=== PATIENT | female | born 1935 | race Caucasian/White ===

== ENCOUNTER 2021-04-27 08:41 | Emergency (ER) | payer OTHER ==
[2021-04-27 10:06] LABS: BILIRUBIN NEGATIVE (NEGATIVE); BLOOD TRACE-INTACT Ery/uL (NEGATIVE); CLARITY CLEAR (CLEAR); COLOR YELLOW (YELLOW); GLUCOSE (U) NORMAL (NORMAL); LEUKOCYTES NEGATIVE Leu/uL (NEGATIVE); NITRITE NEGATIVE (NEGATIVE); PROTEIN NEGATIVE (NEGATIVE); pH 6.5 (5.0-9.0)
[2021-04-27 10:14] LABS: BACTERIA 1+
[2021-04-27 10:33] LABS: BASOPHIL 0.4 % (0-2); EOSINOPHIL 0.2 % (0-7); HCT 35.1 % (37.0-47.0); HGB 11.6 g/dl (12.5-16.0); LYMPHOCYTE 14.9 % (15-48); MCH 33.4 pg (25.0-31.0); MCV 101.2 fL (78.0-100.0); MONOCYTE 7.9 % (0-12); MPV 9.5 fL (6.0-9.5); NEUTROPHIL 76.2 % (41-80); NRBC 0; PLT 191 K/uL (150-400); RBC 3.47 M/uL (4.20-5.40); RDW 14.2 % (11.5-14.0)
[2021-04-27 10:49] LABS: PTT 34.2 SECONDS (24.4-34.7)
[2021-04-27 10:53] LABS: ALBUMIN 3.5 g/dL (3.4-5.0); BILIRUBIN - TOTAL 1.5 mg/dL (0.2-1.0); BUN/CREAT RATIO (CALC) 14.1 RATIO; CREATININE 0.64 mg/dL (0.51-0.95); GLOBULIN (CALCULATION) 3.5 g/dL; POTASSIUM 3.8 mmol/L (3.5-5.1)
[2021-04-27 11:10] LABS: INR 1.12 (0.9-1.2); PROTHROMBIN TIME 13.8 SECONDS (11.8-13.4)
== END 2021-04-27 12:34 | disposition home or self-care (01) ==
LOC: FER 08:41
PROVIDERS: Emergency Medicine
DX: S22.41XA Multiple fractures of ribs, right side, initial encounter for closed fracture (principal); F03.90 Unspecified dementia, unspecified severity, without behavioral disturbance, psychotic disturbance, mood disturbance, and anxiety; Z88.0 Allergy status to penicillin; W19.XXXA Unspecified fall, initial encounter
CPT/HCPCS: 36415; 70450; 71250; 80053; 81001; 84484; 85025; 85610; 85730; 87040; 87088; 93005; 94010

== ENCOUNTER 2021-05-02 13:43 | Inpatient (IN) | payer OTHER ==
[~2021-05-02] VITALS: Ht 160 cm; Wt 64.9 kg
[2021-05-02 14:54] LABS: BASOPHIL 0.5 % (0-2); EOSINOPHIL 0.1 % (0-7); HCT 38.6 % (37.0-47.0); HGB 12.6 g/dl (12.5-16.0); LYMPHOCYTE 16.4 % (15-48); MCH 32.9 pg (25.0-31.0); MCHC 32.6 g/dL (32.0-36.0); MCV 100.8 fL (78.0-100.0); MONOCYTE 8.4 % (0-12); MPV 9.9 fL (6.0-9.5); NEUTROPHIL 73.8 % (41-80); NRBC 0; PLT 285 K/uL (150-400); RBC 3.83 M/uL (4.20-5.40); RDW 13.5 % (11.5-14.0); WBC 10.4 K/uL (4.0-10.5)
[2021-05-02 14:55] LABS: INR 1.12 (0.9-1.2); PROTHROMBIN TIME 13.8 SECONDS (11.8-13.4); PTT 32.2 SECONDS (24.4-34.7)
[2021-05-02 14:56] LABS: BILIRUBIN NEGATIVE (NEGATIVE); BLOOD NEGATIVE Ery/uL (NEGATIVE); CLARITY CLEAR (CLEAR); COLOR YELLOW (YELLOW); GLUCOSE (U) NORMAL (NORMAL); LEUKOCYTES NEGATIVE Leu/uL (NEGATIVE); NITRITE POSITIVE (NEGATIVE); PROTEIN NEGATIVE (NEGATIVE); UROBILINOGEN 0.2 mg/dL (0.2-1.0)
[2021-05-02 15:13] LABS: ALBUMIN 3.7 g/dL (3.4-5.0); BILIRUBIN - TOTAL 1.4 mg/dL (0.2-1.0); BUN/CREAT RATIO (CALC) 13.3 RATIO; CREATININE 0.75 mg/dL (0.51-0.95); GLOBULIN (CALCULATION) 3.3 g/dL; POTASSIUM 4.1 mmol/L (3.5-5.1)
[2021-05-02 15:16] LABS: BACTERIA 3+; SQUAMOUS EPITHELIAL CELLS RARE; TRANSITIONAL EPITHELIAL CELLS RARE; URINARY WBC RARE
[2021-05-02 15:16] LABS: LACTIC ACID 1.6 mmol/L (0.4-1.9)
[2021-05-02] MEDS ORDERED: LEVOTHYROXINE100 MCG PO (20:17)
[2021-05-02] MEDS ORDERED: ESCITALOPRAM OX20 MG PO (20:18)
[2021-05-03 07:12] LABS: BASOPHIL 0.5 % (0-2); EOSINOPHIL 0.8 % (0-7); HCT 32.9 % (37.0-47.0); HGB 10.6 g/dl (12.5-16.0); LYMPHOCYTE 21.1 % (15-48); MCH 32.7 pg (25.0-31.0); MCHC 32.2 g/dL (32.0-36.0); MCV 101.5 fL (78.0-100.0); MONOCYTE 9.4 % (0-12); MPV 10.1 fL (6.0-9.5); NEUTROPHIL 67.5 % (41-80); NRBC 0; PLT 235 K/uL (150-400); RBC 3.24 M/uL (4.20-5.40); RDW 13.7 % (11.5-14.0); WBC 8.4 K/uL (4.0-10.5)
[2021-05-03 07:27] LABS: ALBUMIN 2.9 g/dL (3.4-5.0); BILIRUBIN - TOTAL 1.1 mg/dL (0.2-1.0); BUN/CREAT RATIO (CALC) 17.9 RATIO; CREATININE 0.56 mg/dL (0.51-0.95); GLOBULIN (CALCULATION) 3.2 g/dL; POTASSIUM 3.6 mmol/L (3.5-5.1); TOTAL PROTEIN 6.1 g/dL (6.4-8.2)
--- NOTE | 2021-05-03 15:11 | NUR ---
05/03/21 Ms. Mullen was admitted from [facility]. They will not accept her back until she has had [facility] services. Her son, Bill Mullen chose [facility], [facility] or [facility]. Referrals have been made to each facility.
[2021-05-04 06:58] LABS: BASOPHIL 0.4 % (0-2); EOSINOPHIL 0.8 % (0-7); HCT 31.2 % (37.0-47.0); HGB 10.3 g/dl (12.5-16.0); LYMPHOCYTE 18.8 % (15-48); MCH 33.2 pg (25.0-31.0); MCV 100.6 fL (78.0-100.0); MONOCYTE 8.7 % (0-12); MPV 9.8 fL (6.0-9.5); NEUTROPHIL 70.9 % (41-80); NRBC 0; PLT 207 K/uL (150-400); RDW 13.6 % (11.5-14.0); RETICULOCYTE COUNT 3.1 % (1.0-2.0); WBC 9.1 K/uL (4.0-10.5)
[2021-05-04 07:11] LABS: IRON % SATURATION 21.2 %SAT (20-50)
[2021-05-04 07:37] LABS: BUN/CREAT RATIO (CALC) 15.2 RATIO; CREATININE 0.46 mg/dL (0.51-0.95); FOLIC ACID (SERUM) 4.6 ng/mL (8.6-58.9); FT4 (FREE T4) 1.4 ng/dL (0.76-1.46); MAGNESIUM 1.8 mg/dL (1.8-2.4); POTASSIUM 3.6 mmol/L (3.5-5.1)
--- NOTE | 2021-05-04 09:43 | NUR ---
05/04/21 Awaiting responses from [facility].
--- NOTE | 2021-05-05 04:45 | NUR ---
0400 05/05/21 RN ROUNDED UPON PT AND PT BEDDING AND GOWN WAS NOTED TO BE SATURATED WITH FLUID, RN ASSESSED 20G RFA TO BE LEAKING AND BANDAID PULLED OFF PT STATED "I PULLED THAT" RN REMOVED IV, CATHETER INTACT, PT CONFUSED AT BASELINE, RN REPORTED RETAIL SALES DIRECTOR AND RETAIL SALES DIRECTOR GAVE VERBAL OK FOR NO IV ACCESS AT THIS TIME, PT DOES RECIEVE 1G ROCEPHIN IVPB AND NORMAL SALINE IV CONTINUOUS FLUIDS AT 125ML/HRS, RETAIL SALES DIRECTOR NOTED ADEQUATE INTAKE AND ANTIBIOTICS CAN BE GIVEN IM, NO IV ACCESS AT THIS TIME,
--- NOTE | 2021-05-05 14:54 | NUR ---
05/05/21 [facility] has received insurance auth and will accept patient today. Her son will transport. Report given to Dr. Johnson and FLORESITA Carolina RN.
[2021-05-05] MEDS ORDERED: LEVAQUIN750 MG PO (15:42)
[2021-05-05 18:43] LABS: BASOPHIL 0.3 % (0-2); EOSINOPHIL 0.6 % (0-7); HCT 33.7 % (37.0-47.0); HGB 11.2 g/dl (12.5-16.0); LYMPHOCYTE 16.1 % (15-48); MCH 33.2 pg (25.0-31.0); MCHC 33.2 g/dL (32.0-36.0); MONOCYTE 8.4 % (0-12); MPV 9.4 fL (6.0-9.5); NEUTROPHIL 74.1 % (41-80); NRBC 0; PLT 268 K/uL (150-400); RBC 3.37 M/uL (4.20-5.40); RDW 13.4 % (11.5-14.0); WBC 9.4 K/uL (4.0-10.5)
[2021-05-05 19:03] LABS: BUN/CREAT RATIO (CALC) 15.1 RATIO; CREATININE 0.53 mg/dL (0.51-0.95); MAGNESIUM 1.9 mg/dL (1.8-2.4); POTASSIUM 3.5 mmol/L (3.5-5.1)
[2021-05-06] MEDS ORDERED: LEVAQUIN750 MG PO (13:32)
== END 2021-05-06 15:35 | DRG 689 ==
LOC: FER 13:43 → FTCU 18:03
PROVIDERS: Emergency Medicine; Nurse Practitioner; ADMIT Internal Medicine
DX: N30.00 Acute cystitis without hematuria (principal); G93.41 Metabolic encephalopathy; D50.9 Iron deficiency anemia, unspecified; E03.9 Hypothyroidism, unspecified; Z20.822 Contact with and (suspected) exposure to COVID-19; B96.5 Pseudomonas (aeruginosa) (mallei) (pseudomallei) as the cause of diseases classified elsewhere; F03.90 Unspecified dementia, unspecified severity, without behavioral disturbance, psychotic disturbance, mood disturbance, and anxiety; F32.A Depression, unspecified; M89.9 Disorder of bone, unspecified; I10 Essential (primary) hypertension; G93.89 Other specified disorders of brain; Z79.890 Hormone replacement therapy; Z85.3 Personal history of malignant neoplasm of breast; Z90.12 Acquired absence of left breast and nipple; Z86.73 Personal history of transient ischemic attack (TIA), and cerebral infarction without residual deficits; Z88.0 Allergy status to penicillin; W19.XXXA Unspecified fall, initial encounter; Z91.81 History of falling; Z79.899 Other long term (current) drug therapy
CPT/HCPCS: 36415; 36600; 70450; 70551; 71045; 72125; 80048; 80053; 81001; 82607; 82746; 82803; 83540; 83550; 83605; 83735; 84439; 84443; 84484; 85025; 85610; 85730; 87076; 87088; 87186; 93005; 94762; 97162; 97166; 97530; 97530-GP; 97535; J0696; J1650; J2916; J7030; U0002

== ENCOUNTER 2021-05-15 18:16 | Emergency (ER) | payer OTHER ==
[~2021-05-15 18:16] MED LIST: ESCITALOPRAM OX20 MG PO; LEVAQUIN750 MG PO; LEVOTHYROXINE100 MCG PO
== END 2021-05-15 20:04 | disposition home or self-care (01) ==
LOC: FER 18:16
DX: S01.111A Laceration without foreign body of right eyelid and periocular area, initial encounter (principal); I10 Essential (primary) hypertension; G30.9 Alzheimer's disease, unspecified; Z88.0 Allergy status to penicillin; W19.XXXA Unspecified fall, initial encounter; Y92.009 Unspecified place in unspecified non-institutional (private) residence as the place of occurrence of the external cause
CPT/HCPCS: 70450; 70486; 71045; 72125

== ENCOUNTER 2021-05-24 11:15 | Emergency (ER) | payer OTHER | END 2021-05-24 14:38 | disposition home or self-care (01) | LOC: FER 11:15 | DX: S02.2XXA Fracture of nasal bones, initial encounter for closed fracture (principal); S01.21XA Laceration without foreign body of nose, initial encounter; F03.90 Unspecified dementia, unspecified severity, without behavioral disturbance, psychotic disturbance, mood disturbance, and anxiety; Z88.0 Allergy status to penicillin; W19.XXXA Unspecified fall, initial encounter; Y92.129 Unspecified place in nursing home as the place of occurrence of the external cause | CPT/HCPCS: 70450; 70486 ==

== ENCOUNTER 2021-07-01 14:31 | Emergency (ER) | payer OTHER | END 2021-07-01 18:43 | disposition home or self-care (01) | LOC: FER 14:31 | DX: S80.01XA Contusion of right knee, initial encounter (principal); F17.210 Nicotine dependence, cigarettes, uncomplicated; Z88.0 Allergy status to penicillin; Z86.718 Personal history of other venous thrombosis and embolism; Z79.01 Long term (current) use of anticoagulants; W19.XXXA Unspecified fall, initial encounter | CPT/HCPCS: 93971 ==

== ENCOUNTER 2021-07-15 19:16 | Emergency (ER) | payer OTHER ==
[2021-07-15 20:14] LABS: BASOPHIL 0.6 % (0-2); EOSINOPHIL 4.5 % (0-7); HCT 35.2 % (37.0-47.0); HGB 11.1 g/dl (12.5-16.0); LYMPHOCYTE 31.3 % (15-48); MCH 28.7 pg (25.0-31.0); MCHC 31.5 g/dL (32.0-36.0); MPV 9.9 fL (6.0-9.5); NEUTROPHIL 55.3 % (41-80); NRBC 0; PLT 281 K/uL (150-400); RBC 3.87 M/uL (4.20-5.40); RDW 15.2 % (11.5-14.0); WBC 9.1 K/uL (4.0-10.5)
[2021-07-15 20:31] LABS: INR 1.21 (0.9-1.2); PROTHROMBIN TIME 14.7 SECONDS (11.8-13.4)
[2021-07-15 20:32] LABS: PTT 39.1 SECONDS (24.4-34.7)
[2021-07-15 20:39] LABS: BUN/CREAT RATIO (CALC) 17.3 RATIO; CREATININE 0.75 mg/dL (0.51-0.95); POTASSIUM 3.6 mmol/L (3.5-5.1)
== END 2021-07-15 21:10 | disposition home or self-care (01) ==
LOC: FER 19:16
PROVIDERS: Emergency Medicine Emergency Medical Services
DX: S00.03XA Contusion of scalp, initial encounter (principal); I10 Essential (primary) hypertension; F03.90 Unspecified dementia, unspecified severity, without behavioral disturbance, psychotic disturbance, mood disturbance, and anxiety; Z86.73 Personal history of transient ischemic attack (TIA), and cerebral infarction without residual deficits; Z79.01 Long term (current) use of anticoagulants; Z88.0 Allergy status to penicillin; W19.XXXA Unspecified fall, initial encounter; Y93.89 Activity, other specified
CPT/HCPCS: 36415; 70450; 72125; 80048; 85025; 85610; 85730

== ENCOUNTER 2021-07-16 17:10 | Emergency (ER) | payer OTHER | END 2021-07-16 19:40 | disposition home or self-care (01) | LOC: FER 17:10 | DX: S00.83XA Contusion of other part of head, initial encounter (principal); R29.6 Repeated falls; Z88.0 Allergy status to penicillin; W19.XXXA Unspecified fall, initial encounter; Y92.129 Unspecified place in nursing home as the place of occurrence of the external cause | CPT/HCPCS: 70450; 72125 ==